=== PATIENT | male | born 1955 | race Caucasian/White ===

== ENCOUNTER 2021-09-12 13:22 | Inpatient (IN) | payer MEDICAID ==
[~2021-09-12] VITALS: Ht 167.6 cm; Wt 67.1 kg
[2021-09-12] MEDS ORDERED: NIFEDIPINE 10MG CAPSULE PO ONE (13:45)
[2021-09-12] MEDS ORDERED: DEXAMETHASONE 10 MG/ML VIAL IV ONE (13:45)
[2021-09-12 14:29] LABS: BASOPHILS % 0.2 % (0.0-2.0); EOSINOPHILS % 0.3 % (0.0-5.0); HEMOGLOBIN. 10.7 g/dL (14.0-18.0); LYMPHOCYTES % 15.4 % (20.0-50.0); MEAN CORPUSCULAR HEMOGLOBIN 25.6 pg (28.0-32.0); MEAN CORPUSCULAR VOLUME 81.4 fL (80.0-94.0); MONOCYTES % 8.3 % (2.0-8.0); NEUTROPHILS % 75.8 % (40.0-76.0); PLATELET 179 x1000/uL (130-400); RED BLOOD CELL COUNT 4.18 mill/uL (4.7-6.1); RED CELL DISTRIBUTION WIDTH 17.7 % (11.6-14.6)
[2021-09-12 15:24] LABS: CHLORIDE 99 mEq/L (98-107)
[2021-09-12] MEDS ORDERED: MAGNESIUM/ALUMINUM HYDROXIDE/SIMETHICONE 30ML UDC PO PRN (19:00)
[2021-09-12] MEDS ORDERED: DEXTROSE 50% WATER 50ML SYRINGE IV PRN (19:00)
[2021-09-12] MEDS ORDERED: ACETAMINOPHEN 325MG TABLET PO PRN (19:00)
[2021-09-12] MEDS ORDERED: GUAIFENESIN 200MG/10ML SUGAR FREE UDC PO PRN (19:00)
[2021-09-12] MEDS: INSULIN LISPRO 100 UNITS/ML SUBCUT SCH (21:00)
[2021-09-12] MEDS: BLOOD SUGAR DIAGNOSTIC STRIP TEST SCH (21:04)
[2021-09-12] MEDS: SODIUM CHLORIDE 0.9% INJ 3ML FLUSH IVF SCH (22:50)
[2021-09-13] MEDS: HYDRALAZINE 20MG/ML VIAL IV PRN ×2 (03:52→11:55)
[2021-09-13] MEDS: ONDANSETRON HCL 4MG/2ML INJ IV PRN (03:52)
[2021-09-13] MEDS: SODIUM CHLORIDE 0.9% INJ 3ML FLUSH IVF SCH ×3 (06:33→21:38)
[2021-09-13] MEDS: BLOOD SUGAR DIAGNOSTIC STRIP TEST SCH ×4 (06:34→21:00)
[2021-09-13] MEDS: INSULIN LISPRO 100 UNITS/ML SUBCUT SCH ×4 (06:49→21:44)
[2021-09-13] MEDS: CLONIDINE 0.1MG TABLET PO PRN (06:53)
[2021-09-13] MEDS ORDERED: SODIUM POLYSTYRENE SULFONATE 15 G/60 ML BOT PO NR (09:15)
[2021-09-13 10:00] VITALS: BP 155/68
[2021-09-13 10:51] VITALS: BP 155/68
[2021-09-13] MEDS ORDERED: METO25TA6 PO (11:03)
[2021-09-13] MEDS ORDERED: NIFE-33 PO (11:03)
[2021-09-13] MEDS ORDERED: SEVE800T8 PO (11:03)
[2021-09-13] MEDS ORDERED: ATOR40TA70 PO (11:03)
[2021-09-13] MEDS ORDERED: BUME2TAB7 PO (11:03)
[2021-09-13] MEDS ORDERED: GABA-529 PO (11:03)
[2021-09-13] MEDS ORDERED: ASPI-1406 PO (11:03)
[2021-09-13] MEDS ORDERED: *PATIENT'S OWN MEDICATION STORAGE XX SCH (11:30)
[2021-09-13 12:00] VITALS: BP 170/68
[2021-09-13 15:59] VITALS: BP 154/68
[2021-09-13 17:08] LABS: HEPATITIS B SURFACE ANTIGEN NEGATIVE
[2021-09-13 19:39] VITALS: BP 154/76
[2021-09-14] VITALS: BP 160/73
[2021-09-14 04:00] VITALS: BP 163/70
[2021-09-14] MEDS: HYDRALAZINE 20MG/ML VIAL IV PRN ×3 (06:16→20:00)
[2021-09-14] MEDS: SODIUM CHLORIDE 0.9% INJ 3ML FLUSH IVF SCH ×3 (06:16→20:08)
[2021-09-14] MEDS: BLOOD SUGAR DIAGNOSTIC STRIP TEST SCH ×4 (07:40→20:07)
[2021-09-14 08:00] VITALS: BP 136/58
[2021-09-14] MEDS: INSULIN LISPRO 100 UNITS/ML SUBCUT SCH ×4 (08:05→20:08)
[2021-09-14 09:50] LABS: BASOPHILS % 0.4 % (0.0-2.0); EOSINOPHILS % 0.4 % (0.0-5.0); HEMATOCRIT. 31.4 % (42.0-52.0); LYMPHOCYTES % 16.6 % (20.0-50.0); MEAN CORPUSCULAR HEMOGLOBIN 25.4 pg (28.0-32.0); MEAN CORPUSCULAR VOLUME 79.6 fL (80.0-94.0); MEAN PLATELET VOLUME 8.6 fl (7.4-10.4); MONOCYTES % 10.8 % (2.0-8.0); NEUTROPHILS % 71.8 % (40.0-76.0); PLATELET 203 x1000/uL (130-400); RED BLOOD CELL COUNT 3.95 mill/uL (4.7-6.1); RED CELL DISTRIBUTION WIDTH 17.1 % (11.6-14.6)
[2021-09-14 10:02] LABS: PHOSPHORUS 6.4 mg/dL (2.5-4.9)
[2021-09-14 11:58] VITALS: BP 175/69
[2021-09-14] MEDS: ONDANSETRON HCL 4MG/2ML INJ IV PRN (14:38)
[2021-09-14] MEDS: CALCITRIOL 0.25MCG CAPSULE PO SCH (14:38)
[2021-09-14] MEDS: CALCIUM ACETATE 667MG CAPSULE PO SCH ×2 (14:38→18:04)
[2021-09-14] MEDS: CLONIDINE 0.1MG TABLET PO PRN (15:47)
[2021-09-14 16:00] VITALS: BP 178/71
[2021-09-14 20:00] VITALS: BP 181/69
[2021-09-15 01:20] VITALS: BP 171/67
[2021-09-15] MEDS: ACETAMINOPHEN 325MG TABLET PO PRN (01:29)
[2021-09-15] MEDS: CLONIDINE 0.1MG TABLET PO PRN ×3 (01:29→22:22)
[2021-09-15] MEDS: HYDRALAZINE 20MG/ML VIAL IV PRN ×2 (03:47→12:50)
[2021-09-15 03:57] VITALS: BP 178/64
[2021-09-15] MEDS: SODIUM CHLORIDE 0.9% INJ 3ML FLUSH IVF SCH ×3 (06:03→22:21)
[2021-09-15] MEDS: BLOOD SUGAR DIAGNOSTIC STRIP TEST SCH ×4 (06:04→21:31)
[2021-09-15 08:00] VITALS: BP 168/65
[2021-09-15 08:07] LABS: BASOPHILS % 0.5 % (0.0-2.0); EOSINOPHILS % 0.8 % (0.0-5.0); HEMATOCRIT. 30.9 % (42.0-52.0); HEMOGLOBIN. 9.9 g/dL (14.0-18.0); LYMPHOCYTES % 18.3 % (20.0-50.0); MEAN CORPUSCULAR HEMOGLOBIN 25.6 pg (28.0-32.0); MEAN CORPUSCULAR VOLUME 79.5 fL (80.0-94.0); MEAN PLATELET VOLUME 9.3 fl (7.4-10.4); MONOCYTES % 11.6 % (2.0-8.0); NEUTROPHILS % 68.8 % (40.0-76.0); PLATELET 218 x1000/uL (130-400); RED BLOOD CELL COUNT 3.88 mill/uL (4.7-6.1); RED CELL DISTRIBUTION WIDTH 16.9 % (11.6-14.6)
[2021-09-15] MEDS: INSULIN LISPRO 100 UNITS/ML SUBCUT SCH ×4 (08:10→21:30)
[2021-09-15] MEDS: CALCITRIOL 0.25MCG CAPSULE PO SCH (08:10)
[2021-09-15] MEDS: CALCIUM ACETATE 667MG CAPSULE PO SCH ×3 (08:10→17:31)
[2021-09-15 08:22] LABS: PHOSPHORUS 7.7 mg/dL (2.5-4.9)
[2021-09-15 12:00] VITALS: BP 182/72
[2021-09-15 16:05] VITALS: BP 167/63
[2021-09-15] MEDS: ONDANSETRON HCL 4MG/2ML INJ IV PRN (17:36)
[2021-09-15 20:00] VITALS: BP 190/90
[2021-09-16] VITALS: BP 186/75
[2021-09-16] MEDS: HYDRALAZINE 20MG/ML VIAL IV PRN (00:47)
[2021-09-16] MEDS: ZOLPIDEM TARTRATE 5MG TABLET PO PRN ×2 (03:58→23:25)
[2021-09-16 04:00] VITALS: BP 175/68
[2021-09-16 05:16] LABS: BASOPHILS % 0.6 % (0.0-2.0); EOSINOPHILS % 1.3 % (0.0-5.0); HEMATOCRIT. 29.3 % (42.0-52.0); HEMOGLOBIN. 9.6 g/dL (14.0-18.0); LYMPHOCYTES % 13.2 % (20.0-50.0); MEAN CORPUSCULAR HEMOGLOBIN 25.8 pg (28.0-32.0); MEAN CORPUSCULAR VOLUME 78.3 fL (80.0-94.0); MONOCYTES % 11.2 % (2.0-8.0); NEUTROPHILS % 73.7 % (40.0-76.0); PLATELET 233 x1000/uL (130-400); RED BLOOD CELL COUNT 3.74 mill/uL (4.7-6.1); RED CELL DISTRIBUTION WIDTH 16.9 % (11.6-14.6)
[2021-09-16 06:26] LABS: PHOSPHORUS 8.5 mg/dL (2.5-4.9)
[2021-09-16] MEDS: BLOOD SUGAR DIAGNOSTIC STRIP TEST SCH ×4 (07:40→21:00)
[2021-09-16 08:00] VITALS: BP 156/66
[2021-09-16] MEDS: INSULIN LISPRO 100 UNITS/ML SUBCUT SCH ×4 (08:10→17:14)
[2021-09-16] MEDS: SODIUM CHLORIDE 0.9% INJ 3ML FLUSH IVF SCH ×3 (08:19→22:00)
[2021-09-16] MEDS: CALCITRIOL 0.25MCG CAPSULE PO SCH (08:19)
[2021-09-16] MEDS: CALCIUM ACETATE 667MG CAPSULE PO SCH ×3 (08:19→17:14)
[2021-09-16 11:46] VITALS: BP 142/73
[2021-09-16 16:00] VITALS: BP 196/77
[2021-09-16] MEDS: CLONIDINE 0.1MG TABLET PO PRN (17:15)
[2021-09-16] MEDS ORDERED: AMLODIPINE 10MG TABLET PO NR (19:00)
[2021-09-16] MEDS ORDERED: CLONIDINE 0.1MG TABLET PO PRN (19:00)
[2021-09-16] MEDS: LOSARTAN POTASSIUM 25 MG TABLET PO SCH (19:20)
[2021-09-16 20:00] VITALS: BP 156/69
[2021-09-17] VITALS: BP 137/58
[2021-09-17] MEDS: SODIUM CHLORIDE 0.9% INJ 3ML FLUSH IVF SCH ×3 (06:39→21:58)
[2021-09-17] MEDS: BLOOD SUGAR DIAGNOSTIC STRIP TEST SCH ×4 (06:39→21:44)
[2021-09-17 07:10] LABS: BASOPHILS % 0.6 % (0.0-2.0); EOSINOPHILS % 2.2 % (0.0-5.0); HEMATOCRIT. 30.4 % (42.0-52.0); LYMPHOCYTES % 19.5 % (20.0-50.0); MEAN CORPUSCULAR HEMOGLOBIN 25.8 pg (28.0-32.0); MEAN CORPUSCULAR VOLUME 78.6 fL (80.0-94.0); MEAN PLATELET VOLUME 8.7 fl (7.4-10.4); MONOCYTES % 10.9 % (2.0-8.0); NEUTROPHILS % 66.8 % (40.0-76.0); PLATELET 263 x1000/uL (130-400); RED BLOOD CELL COUNT 3.87 mill/uL (4.7-6.1); RED CELL DISTRIBUTION WIDTH 16.6 % (11.6-14.6)
[2021-09-17 07:21] LABS: PHOSPHORUS 6.5 mg/dL (2.5-4.9)
[2021-09-17 08:00] VITALS: BP 187/71
[2021-09-17] MEDS: INSULIN LISPRO 100 UNITS/ML SUBCUT SCH ×4 (08:10→21:58)
[2021-09-17] MEDS: LOSARTAN POTASSIUM 25 MG TABLET PO SCH (08:44)
[2021-09-17] MEDS: CALCITRIOL 0.25MCG CAPSULE PO SCH (08:44)
[2021-09-17] MEDS: AMLODIPINE 10MG TABLET PO SCH (08:45)
[2021-09-17] MEDS: CALCIUM ACETATE 667MG CAPSULE PO SCH ×3 (08:45→17:46)
[2021-09-17 12:00] VITALS: BP 139/56
[2021-09-17 16:00] VITALS: BP 128/61
[2021-09-17 20:34] VITALS: BP 142/67
[2021-09-18 00:02] VITALS: BP 121/64
[2021-09-18] MEDS: DIPHENHYDRAMINE 50MG/ML VIAL IV PRN (02:07)
[2021-09-18 04:00] VITALS: BP 175/70
[2021-09-18] MEDS: SODIUM CHLORIDE 0.9% INJ 3ML FLUSH IVF SCH ×3 (06:00→22:00)
[2021-09-18 07:34] LABS: BASOPHILS % 0.9 % (0.0-2.0); EOSINOPHILS % 2.8 % (0.0-5.0); HEMATOCRIT. 28.6 % (42.0-52.0); HEMOGLOBIN. 9.5 g/dL (14.0-18.0); LYMPHOCYTES % 22.4 % (20.0-50.0); MEAN CORPUSCULAR HEMOGLOBIN 26.2 pg (28.0-32.0); MEAN CORPUSCULAR VOLUME 78.5 fL (80.0-94.0); MEAN PLATELET VOLUME 8.6 fl (7.4-10.4); MONOCYTES % 11.4 % (2.0-8.0); NEUTROPHILS % 62.5 % (40.0-76.0); PLATELET 283 x1000/uL (130-400); RED BLOOD CELL COUNT 3.64 mill/uL (4.7-6.1); RED CELL DISTRIBUTION WIDTH 16.5 % (11.6-14.6)
[2021-09-18] MEDS: BLOOD SUGAR DIAGNOSTIC STRIP TEST SCH ×4 (07:40→20:31)
[2021-09-18 07:54] LABS: PHOSPHORUS 6.9 mg/dL (2.5-4.9)
[2021-09-18 08:00] VITALS: BP 167/69
[2021-09-18] MEDS: INSULIN LISPRO 100 UNITS/ML SUBCUT SCH ×4 (08:10→20:31)
[2021-09-18] MEDS: CALCIUM ACETATE 667MG CAPSULE PO SCH ×3 (08:56→17:53)
[2021-09-18] MEDS: CALCITRIOL 0.25MCG CAPSULE PO SCH (08:56)
[2021-09-18] MEDS: AMLODIPINE 10MG TABLET PO SCH (08:57)
[2021-09-18] MEDS: LOSARTAN POTASSIUM 25 MG TABLET PO SCH (09:00)
[2021-09-18] MEDS: HYDRALAZINE 20MG/ML VIAL IV PRN (11:20)
[2021-09-18 12:00] VITALS: BP 142/63
[2021-09-18 16:00] VITALS: BP 192/74
[2021-09-18 20:00] VITALS: BP 146/70
[2021-09-18] MEDS ORDERED: EPOETIN ALFA-EPBX 4,000 UNIT/ML VIAL SUBCUT SCH (21:00)
[2021-09-19] VITALS: BP 140/68
[2021-09-19] MEDS: ACETAMINOPHEN 325MG TABLET PO PRN (01:43)
[2021-09-19] MEDS: HYDRALAZINE 20MG/ML VIAL IV PRN (01:43)
[2021-09-19] MEDS: DIPHENHYDRAMINE 50MG/ML VIAL IV PRN (01:43)
[2021-09-19 04:00] VITALS: BP 136/71
[2021-09-19] MEDS: SODIUM CHLORIDE 0.9% INJ 3ML FLUSH IVF SCH ×3 (06:35→21:25)
[2021-09-19 06:36] LABS: BASOPHILS % 0.8 % (0.0-2.0); EOSINOPHILS % 2.5 % (0.0-5.0); HEMATOCRIT. 27.7 % (42.0-52.0); HEMOGLOBIN. 9.1 g/dL (14.0-18.0); LYMPHOCYTES % 21.7 % (20.0-50.0); MEAN CORPUSCULAR HEMOGLOBIN 26.1 pg (28.0-32.0); MEAN CORPUSCULAR VOLUME 78.9 fL (80.0-94.0); MEAN PLATELET VOLUME 8.4 fl (7.4-10.4); MONOCYTES % 10.7 % (2.0-8.0); NEUTROPHILS % 64.3 % (40.0-76.0); PLATELET 302 x1000/uL (130-400); RED BLOOD CELL COUNT 3.51 mill/uL (4.7-6.1); RED CELL DISTRIBUTION WIDTH 16.2 % (11.6-14.6)
[2021-09-19 06:53] LABS: PHOSPHORUS 7.7 mg/dL (2.5-4.9)
[2021-09-19] MEDS: BLOOD SUGAR DIAGNOSTIC STRIP TEST SCH ×4 (07:40→21:26)
[2021-09-19] MEDS: INSULIN LISPRO 100 UNITS/ML SUBCUT SCH ×4 (07:42→21:00)
[2021-09-19 08:00] VITALS: BP 141/64
[2021-09-19] MEDS: CALCIUM ACETATE 667MG CAPSULE PO SCH ×3 (08:56→18:07)
[2021-09-19] MEDS: CALCITRIOL 0.25MCG CAPSULE PO SCH (08:56)
[2021-09-19] MEDS: AMLODIPINE 10MG TABLET PO SCH (09:00)
[2021-09-19] MEDS: LOSARTAN POTASSIUM 25 MG TABLET PO SCH (09:00)
[2021-09-19 12:00] VITALS: BP 156/61
[2021-09-19 16:00] VITALS: BP 155/52
[2021-09-19] MEDS ORDERED: BISACODYL 10MG SUPP PR NR (16:00)
[2021-09-19 18:33] LABS: HEPATITIS B SURFACE ANTIGEN NEGATIVE
[2021-09-19 20:00] VITALS: BP 142/75
[2021-09-20 00:15] VITALS: BP 170/74
[2021-09-20] MEDS: DIPHENHYDRAMINE 50MG/ML VIAL IV PRN (00:52)
[2021-09-20] MEDS: HYDRALAZINE 20MG/ML VIAL IV PRN (00:58)
[2021-09-20 01:23] VITALS: BP 170/74
[2021-09-20 04:00] VITALS: BP 156/70
[2021-09-20 05:43] LABS: BASOPHILS % 1.1 % (0.0-2.0); EOSINOPHILS % 2.1 % (0.0-5.0); HEMATOCRIT. 27.9 % (42.0-52.0); HEMOGLOBIN. 9.3 g/dL (14.0-18.0); LYMPHOCYTES % 17.1 % (20.0-50.0); MEAN CORPUSCULAR HEMOGLOBIN 26.2 pg (28.0-32.0); MEAN CORPUSCULAR VOLUME 78.3 fL (80.0-94.0); MONOCYTES % 10.1 % (2.0-8.0); NEUTROPHILS % 69.6 % (40.0-76.0); PLATELET 302 x1000/uL (130-400); RED BLOOD CELL COUNT 3.56 mill/uL (4.7-6.1); RED CELL DISTRIBUTION WIDTH 16.5 % (11.6-14.6)
[2021-09-20 05:50] LABS: PHOSPHORUS 5.8 mg/dL (2.5-4.9)
[2021-09-20] MEDS: BLOOD SUGAR DIAGNOSTIC STRIP TEST SCH (06:36)
[2021-09-20] MEDS: SODIUM CHLORIDE 0.9% INJ 3ML FLUSH IVF SCH (06:37)
[2021-09-20 08:00] VITALS: BP 153/69
[2021-09-20] MEDS: CALCIUM ACETATE 667MG CAPSULE PO SCH (08:04)
[2021-09-20] MEDS: AMLODIPINE 10MG TABLET PO SCH (08:04)
[2021-09-20] MEDS: CALCITRIOL 0.25MCG CAPSULE PO SCH (08:04)
[2021-09-20] MEDS: INSULIN LISPRO 100 UNITS/ML SUBCUT SCH (08:06)
[2021-09-20] MEDS ORDERED: LOSARTAN POTASSIUM 50 MG TABLET PO SCH (09:00)
== END 2021-09-20 08:50 | disposition home or self-care (01) | DRG 137 ==
LOC: EDBD 13:32 → ER 13:32 → MICUSO 09-13 01:27 → 7WST 09-13 09:23
PROVIDERS: ADMIT Internal Medicine; ATTEND Internal Medicine
PROC: 5A1D70Z Performance of Urinary Filtration, Intermittent, Less than 6 Hours Per Day (ICD-10-PCS; principal; 2021-09-13)
PROC: 5A1D70Z Performance of Urinary Filtration, Intermittent, Less than 6 Hours Per Day (ICD-10-PCS; 2021-09-16)
PROC: 5A1D70Z Performance of Urinary Filtration, Intermittent, Less than 6 Hours Per Day (ICD-10-PCS; 2021-09-18)
PROC: 5A1D70Z Performance of Urinary Filtration, Intermittent, Less than 6 Hours Per Day (ICD-10-PCS; 2021-09-19)
DX: U07.1 COVID-19 (principal); J12.82 Pneumonia due to coronavirus disease 2019; E43 Unspecified severe protein-calorie malnutrition; I12.0 Hypertensive chronic kidney disease with stage 5 chronic kidney disease or end stage renal disease; E87.1 Hypo-osmolality and hyponatremia; E11.22 Type 2 diabetes mellitus with diabetic chronic kidney disease; D64.9 Anemia, unspecified; E11.42 Type 2 diabetes mellitus with diabetic polyneuropathy; E78.00 Pure hypercholesterolemia, unspecified; E78.5 Hyperlipidemia, unspecified; E87.5 Hyperkalemia; F17.200 Nicotine dependence, unspecified, uncomplicated; N18.6 End stage renal disease; E21.1 Secondary hyperparathyroidism, not elsewhere classified; K59.00 Constipation, unspecified; Z79.4 Long term (current) use of insulin; Z82.49 Family history of ischemic heart disease and other diseases of the circulatory system; Z83.3 Family history of diabetes mellitus; Z99.2 Dependence on renal dialysis; Z68.23 Body mass index [BMI] 23.0-23.9, adult
CPT/HCPCS: 36415; 71045; 80048; 80053; 82962; 83036; 83735; 83880; 84100; 84484; 85025; 86705; 86709; 86803; 87340; 87426; 99285; J0360; J0885; J1100; J1200; J1815; J2405; U0003; U0005